=== PATIENT | female | born 1975 | race Caucasian/White ===

== ENCOUNTER → 2019-10-30 08:14 | Outpatient (BNVA) | payer BC, SELFPAY | PROVIDERS: Family Provider Family Medicine; PCP Family Medicine; Visit Provider Nurse Practitioner | DX: M54.41 Lumbago with sciatica, right side (principal); M54.2 Cervicalgia; G43.819 Other migraine, intractable, without status migrainosus; M25.511 Pain in right shoulder; M25.512 Pain in left shoulder; G62.9 Polyneuropathy, unspecified; Z98.1 Arthrodesis status; Z79.891 Long term (current) use of opiate analgesic | CPT/HCPCS: 99214 ==

== ENCOUNTER → 2019-12-28 15:02 | Outpatient (BNVA) | payer BC, SELFPAY | PROVIDERS: Family Provider Family Medicine; PCP Family Medicine; Visit Provider Anesthesiology | DX: M54.41 Lumbago with sciatica, right side (principal); G62.9 Polyneuropathy, unspecified; G43.819 Other migraine, intractable, without status migrainosus; Z98.1 Arthrodesis status; Z79.891 Long term (current) use of opiate analgesic | CPT/HCPCS: 99214 ==

== ENCOUNTER → 2020-05-07 11:34 | Outpatient (BNVA) | payer BC, SELFPAY | PROVIDERS: Family Provider Family Medicine; PCP Family Medicine; Visit Provider Anesthesiology | DX: M54.6 Pain in thoracic spine (principal); M54.41 Lumbago with sciatica, right side; M25.511 Pain in right shoulder; M25.512 Pain in left shoulder; R51 Headache; Z98.1 Arthrodesis status; Z79.891 Long term (current) use of opiate analgesic | CPT/HCPCS: 99214 ==

== ENCOUNTER → 2020-07-04 13:36 | Outpatient (BNVA) | payer BC, SELFPAY | PROVIDERS: Family Provider Family Medicine; PCP Family Medicine; Visit Provider Nurse Practitioner | DX: M54.41 Lumbago with sciatica, right side (principal); M54.6 Pain in thoracic spine; M54.2 Cervicalgia; R51 Headache; M25.511 Pain in right shoulder; M25.512 Pain in left shoulder; G62.9 Polyneuropathy, unspecified; Z98.1 Arthrodesis status; Z79.891 Long term (current) use of opiate analgesic | CPT/HCPCS: 99214 ==

== ENCOUNTER → 2020-09-05 13:38 | Outpatient (BNVA) | payer BC, SELFPAY | PROVIDERS: Family Provider Family Medicine; PCP Family Medicine; Visit Provider Anesthesiology | DX: M54.41 Lumbago with sciatica, right side (principal); G43.819 Other migraine, intractable, without status migrainosus; M54.6 Pain in thoracic spine; Z79.891 Long term (current) use of opiate analgesic; Z98.1 Arthrodesis status | CPT/HCPCS: 99214 ==

== ENCOUNTER → 2020-10-31 13:41 | Outpatient (BNVA) | payer BC, SELFPAY | PROVIDERS: Family Provider Family Medicine; PCP Family Medicine; Visit Provider Nurse Practitioner | DX: M54.41 Lumbago with sciatica, right side (principal); M25.521 Pain in right elbow; M25.522 Pain in left elbow; M25.511 Pain in right shoulder; M25.512 Pain in left shoulder; G43.819 Other migraine, intractable, without status migrainosus; M54.6 Pain in thoracic spine; G62.9 Polyneuropathy, unspecified; Z79.891 Long term (current) use of opiate analgesic | CPT/HCPCS: 99214 ==

== ENCOUNTER → 2020-12-26 13:41 | Outpatient (BNVA) | payer BC, SELFPAY | PROVIDERS: Family Provider Family Medicine; PCP Family Medicine; Visit Provider Nurse Practitioner | DX: G89.29 Other chronic pain (principal); M54.2 Cervicalgia; M54.41 Lumbago with sciatica, right side; M54.6 Pain in thoracic spine; M25.511 Pain in right shoulder; M25.512 Pain in left shoulder; Z98.1 Arthrodesis status; Z79.891 Long term (current) use of opiate analgesic | CPT/HCPCS: 99214 ==

== ENCOUNTER → 2021-02-20 13:25 | Outpatient (BNVA) | payer BC, SELFPAY | PROVIDERS: Family Provider Family Medicine; PCP Family Medicine; Visit Provider Anesthesiology | DX: G89.29 Other chronic pain (principal); M54.2 Cervicalgia; M25.511 Pain in right shoulder; M25.512 Pain in left shoulder; M54.6 Pain in thoracic spine; Z98.1 Arthrodesis status; Z79.891 Long term (current) use of opiate analgesic | CPT/HCPCS: 99214 ==

== ENCOUNTER → 2021-06-05 14:17 | Outpatient (BNVA) | payer BC, SELFPAY | PROVIDERS: Family Provider Family Medicine; Visit Provider Anesthesiology | DX: G89.29 Other chronic pain (principal); M54.2 Cervicalgia; M54.5 Low back pain; M54.6 Pain in thoracic spine; M25.551 Pain in right hip; M25.552 Pain in left hip; R51.9 Headache, unspecified; F17.210 Nicotine dependence, cigarettes, uncomplicated; Z98.1 Arthrodesis status; Z79.891 Long term (current) use of opiate analgesic | CPT/HCPCS: 99214 ==

== ENCOUNTER → 2021-08-07 13:34 | Outpatient (BNVA) | payer OTHER, SELFPAY | PROVIDERS: Family Provider Family Medicine; PCP Family Medicine; Visit Provider Anesthesiology | DX: G89.29 Other chronic pain (principal); M25.551 Pain in right hip; M25.552 Pain in left hip; M54.2 Cervicalgia; M54.50 Low back pain, unspecified; G43.819 Other migraine, intractable, without status migrainosus; M79.644 Pain in right finger(s); Z98.1 Arthrodesis status; Z79.891 Long term (current) use of opiate analgesic; F17.210 Nicotine dependence, cigarettes, uncomplicated | CPT/HCPCS: 99214 ==

== ENCOUNTER 2021-11-29 10:32 | Emergency (ER) | payer OTHER, SELFPAY ==
[2021-11-29] VITALS (7 sets, daily range): BP systolic 119–150; BP diastolic 75–94; PULSE 67–77; RESP 14–18; TEMP 36.5; O2SAT 96–98; BMI 31.8
--- NOTE | 2021-11-29 10:49 | PC.NURSE ---
CONFIRMED POSITIVE ON TUESDAY BY A HOME TEST, PATIENT COMPLETED ON THAT DAY AND IT WAS NEGATIVE- TUESDAY NIGHT PATIENT STARTED RUNNING A FEVER- 102, NOW HAVING SOB AND DIZZINESS
--- NOTE | 2021-11-29 11:08 | ECG_ITS ---
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 Measurements Intervals [place] Rate: 69 P: 60 [place]: 186 QRS: 43 QRSD: 86 T: 46 QT: 400 QTc: 431 Interpretive Statements SINUS RHYTHM No previous ECG available for comparison Electronically Signed On 11-29-2021 16:58:08 TILE SETTER SUPERVISOR by Jihan De La Paz M.D. [id number]
--- NOTE | 2021-11-29 11:08 | XRR_ITS ---
PROCEDURE INFORMATION: Exam: XR Chest Exam date and time: 11/29/2021 11:08 AM Age: 46 years old Clinical indication: Shortness of breath; Additional info: SOB TECHNIQUE: Imaging protocol: XR of the chest. Views: 1 view. COMPARISON: CT Cervical Spine wo* [id number] 12/03/2017 5:03 PM FINDINGS: Lungs: Unremarkable. No consolidation. Pleural spaces: Unremarkable. No pleural effusion. No pneumothorax. Heart/Mediastinum: Unremarkable. No cardiomegaly. Bones/joints: Unremarkable. XR/XR chest 1V portable [id number] IMPRESSION: No acute findings.
--- NOTE | 2021-11-29 11:09 | W.ED.SOB ---
HPI - SOB/Dyspnea General: Chief Complaint: Shortness of Breath/Dyspnea Stated Complaint: sob, covid positive exposure Time Seen by Provider: 11/29/21 10:46 History of Present Illness: HPI Narrative: 46-year-old with history of anxiety presents with shortness of breath. This started yesterday. Denies any cough chest pain lower extremity pain or swelling. She is PERC negative. Review of Systems Narrative: - CONSTITUTIONAL: Denies weight loss, fever and chills. - HEENT: Denies changes in vision and hearing. - RESPIRATORY: As above - CV: Denies palpitations and CP. - GI: Denies abdominal pain, nausea, vomiting and diarrhea. - : Denies dysuria and urinary frequency. - MSK: Denies myalgia and joint pain. - SKIN: Denies rash and pruritus. - NEUROLOGICAL: Denies headache, weakness, numbness and syncope. - PSYCHIATRIC: Denies suicidal ideation [facility] ED PFSH: Medical History Cervicogenic headache Chronic neck and back pain Hyperlipidemia joint terminal attack controller current use of opiate analgesic Neuropathy Pain in finger of right hand Shingles Shoulder pain, bilateral Thoracic spine pain Surgical History History of lumbar fusion 11/29/11 at [facility] S/P appendectomy 1989 S/P hysterectomy 2009-partial, 2009-full Status post tonsillectomy 1984 Family History Father Cancer Daughter Diabetes Social History (Updated 10/13/21 @ 14:23 by Alesia Sandhu LPN) Smoking and tobacco status: current some day smoker cigarettes Packs smoked per day: 0.5 Alcohol intake: never History of recent travel: No Physical Exam Narrative: EXAM NARRATIVE: - GENERAL: Alert and oriented x 3. No acute distress. Well-nourished. - EYES: EOMI. Anicteric. - HENT: Atraumatic, no C-spine tenderness. Moist mucous membranes. No scleral icterus. No cervical lymphadenopathy. - LUNGS: Clear to auscultation bilaterally. No accessory muscle use. Equal lung sounds bilaterally. No respiratory distress. - CARDIOVASCULAR: Regular rate and rhythm. No murmur. No JVD. - ABDOMEN: Soft, non-tender and non-distended. Negative CVA tenderness bilaterally, no rebound or guarding, negative Ye sign. No palpable masses. - EXTREMITIES: No edema. Non-tender. - SKIN: No rashes or lesions. Warm. - NEUROLOGIC: No meningismus or focal neurological deficits. CN II-XII grossly intact. - PSYCHIATRIC: Cooperative. Appropriate mood and affect. Course Vital Signs: Vital signs: Vital Signs Temperature 97.7 F 11/29/21 10:39 Pulse Rate 74 11/29/21 12:44 Respiratory Rate 17 11/29/21 12:44 Blood Pressure 150/94 11/29/21 12:44 Pulse Oximetry 97 11/29/21 13:36 MDM - SOB/Dyspnea Medical Decision Making 46-year-old presents with shortness of breath. Physical exam unremarkable. EKG and troponin do not reveal any sign of acute ischemia or acute abnormality. Patient is PERC negative. X-ray does not reveal pneumothorax or consolidation. She is however Covid positive. She is medically stable afebrile and nontoxic-appearing. Ambulated without desaturation. At this time I believe patient would be safe for discharge and outpatient follow-up. Return precautions provided. Plan was reviewed with the patient who expressed understanding. Questions answered. Patient will follow up with PCP. Patient discharged in stable condition. Lab Data : 11/29/21 11:40 11/29/21 11:40 Labs/Radiology: Radiology Impressions Chest X-Ray 11/29/21 11:08 IMPRESSION: No acute findings. Laboratory Results WBC 4.1 10^3/uL (4.0-10.0) 11/29/21 11:40 RBC 4.66 10^6/uL (4.1-5.3) 11/29/21 11:40 Hgb 14.9 g/dL (11.5-15.3) 11/29/21 11:40 Hct 45.3 % (37.0-47.0) 11/29/21 11:40 MCV 97.2 fl (81-99) 11/29/21 11:40 MCH 32.0 pg (28.0-34.0) 11/29/21 11:40 MCHC 32.9 g/dL (30.0-36.0) 11/29/21 11:40 RDW 13.5 % (12.1-15.1) 11/29/21 11:40 Plt Count 174 10^3/cmm (130-400) 11/29/21 11:40 MPV 10.7 fL (7.4-10.4) H 11/29/21 11:40 Neut % (Auto) 66.5 % 11/29/21 11:40 Lymph % (Auto) 24.3 % 11/29/21 11:40 [place] % (Auto) 4.6 % 11/29/21 11:40 Eos % (Auto) 3.4 % 11/29/21 11:40 Baso % (Auto) 0.2 % 11/29/21 11:40 Neut # (Auto) 2.73 10^3/uL (1.8-7.7) 11/29/21 11:40 Lymph # (Auto) 1.0 10^3/uL (0.8-4.8) 11/29/21 11:40 [place] # (Auto) 0.2 10^3/uL (0.2-0.9) 11/29/21 11:40 Eos # (Auto) 0.1 10^3/uL (0.0-0.8) 11/29/21 11:40 Baso # (Auto) 0.0 10^3/uL (0.0-0.1) 11/29/21 11:40 Nucleated RBC % (auto) 0 % 11/29/21 11:40 Nucleated RBCs # 0.0 /100WBC 11/29/21 11:40 Sodium 142 mmol/L (136-145) 11/29/21 11:40 Potassium 4.3 mmol/L (3.5-5.1) 11/29/21 11:40 Chloride 108 mmol/L (98-107) H 11/29/21 11:40 Carbon Dioxide 21 mmol/L (22-29) L 11/29/21 11:40 Anion Gap 17.3 (5-19) 11/29/21 11:40 BUN 7 mg/dL (6-20) 11/29/21 11:40 Creatinine 0.8 mg/dL (0.5-0.9) 11/29/21 11:40 GFR Calculation 76.6 mL/min (90-130) L 11/29/21 11:40 Glucose 85 mg/dL (65-115) 11/29/21 11:40 Calculated Osmolality 291 mOsm/kg (285-295) 11/29/21 11:40 Calcium 9.2 mg/dL (8.5-10.5) 11/29/21 11:40 Total Bilirubin 0.4 mg/dL (0.15-1.2) 11/29/21 11:40 AST 50 U/L (0-32) H 11/29/21 11:40 ALT 69 U/L (0-33) H 11/29/21 11:40 Alkaline Phosphatase 100 IU/L (35-105) 11/29/21 11:40 Troponin T Baseline 7 ng/L (0-10) 11/29/21 11:40 NT-Pro-B Natriuret Pep 216 pg/mL (0-125) H 11/29/21 11:40 Total Protein 6.0 g/dL (6.6-8.7) L 11/29/21 11:40 Albumin 4.2 g/dL (3.5-5.2) 11/29/21 11:40 Globulin 1.8 g/dL (1.3-4.6) 11/29/21 11:40 SARS-CoV-2 Ag (Rapid) Positive (Negative) H 11/29/21 11:52 Critical Care Time Critical Care Time: Attestation: Normal sinus rhythm, rate of 69, no sign of acute ischemia or other acute abnormality. Discharge Plan Discharge Patient Disposition: Home Clinical Impression: COVID-19 Condition: Stable Prescriptions: No Action ibuprofen 200 mg tablet 200 mg PO Q6H PRN0RF topiramate [Topamax] 200 mg tablet 200 mg PO BID 30 Days Qty: 60 1RF oxycodone-acetaminophen [Percocet] 10-325 mg tablet 1 tab PO .five times daily MDD 5 PRN (Reason: pain) 30 Days Qty: 150 0RF Rx Instructions: fill on or after 10/21/21 Pt on benzo meds oxycodone-acetaminophen [Percocet] 10-325 mg tablet 1 tab PO .five times daily MDD 5 PRN (Reason: pain) 30 Days Qty: 150 0RF Rx Instructions: fill on or after 11/20/21 Pt on benzo meds alprazolam [Xanax] 1 mg tablet 1 mg PO ONCE PRN0RF escitalopram oxalate 20 mg tablet 20 mg PO DAILY 0RF Centrum Complete 18-400 mg-mcg tablet 1 tab PO DAILY 0RF Discharge Orders: Discharge ED (Routine); Ordered 11/29/21 Ordered By: Kirill Skaggs Referrals: Pham Smiht DO [Primary Care Provider] - 1-3 days Patient Instructions: COVID-19 (Coronavirus Disease 2019) (ED), Opioid Safety Coding Level of Care Code ED [place] for [facility]
[2021-11-29] MEDS: hyDROXYzine 25 mg Capsule PO (11:50)
[2021-11-29 11:52] LABS: Basophils % 0.2 %; Eosinophils # 0.1 10^3/uL (0.0-0.8); Eosinophils % 3.4 %; Hematocrit 45.3 % (37.0-47.0); Hemoglobin 14.9 g/dL (11.5-15.3); Lymphocytes % 24.3 %; Mean Corpuscular HGB Conc 32.9 g/dL (30.0-36.0); Mean Corpuscular Volume 97.2 fl (81-99); Mean Platelet Volume 10.7 fL (7.4-10.4); Monocytes # 0.2 10^3/uL (0.2-0.9); Monocytes % 4.6 %; Neutrophils # 2.73 10^3/uL (1.8-7.7); Neutrophils % 66.5 %; Nucleated Red Blood Cells % 0 %; Platelet Count 174 10^3/cmm (130-400); Red Blood Count 4.66 10^6/uL (4.1-5.3); Red Cell Distribution Width 13.5 % (12.1-15.1); White Blood Count 4.1 10^3/uL (4.0-10.0)
[2021-11-29 12:19] LABS: Troponin(5th) Baseline 7 ng/L (0-10)
[2021-11-29 12:26] LABS: Alanine Aminotransferase 69 U/L (0-33); Albumin Level 4.2 g/dL (3.5-5.2); Alkaline Phosphatase 100 IU/L (35-105); Aspartate Amino Transferase 50 U/L (0-32); Blood Urea Nitrogen 7 mg/dL (6-20); Calcium 9.2 mg/dL (8.5-10.5); Carbon Dioxide 21 mmol/L (22-29); Chloride 108 mmol/L (98-107); Globulin 1.8 g/dL (1.3-4.6); Glomerular Filtration Rate 76.6 mL/min (90-130); Glucose 85 mg/dL (65-115); NT Pro B Type Natriuretic Pept 216 pg/mL (0-125); Osmolality Calculated 291 mOsm/kg (285-295); Sodium 142 mmol/L (136-145); Total Bilirubin 0.4 mg/dL (0.15-1.2)
[2021-11-29 12:36] LABS: Anion Gap 17.3 (5-19); Potassium 4.3 mmol/L (3.5-5.1)
[2021-11-29 12:47] LABS: SARS Covid-2 Antigen Positive (Negative)
--- NOTE | 2021-11-29 13:08 | ECG_ITS ---
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 Measurements Intervals [place] Rate: 64 P: 73 [place]: 205 QRS: 59 QRSD: 85 T: 60 QT: 405 QTc: 419 Interpretive Statements SINUS RHYTHM Compared to ECG 11/29/2021 11:31:07 No significant changes Electronically Signed On 11-29-2021 17:02:56 FIELD SCOUT by Jihan De La Paz M.D. [id number]
--- NOTE | 2021-11-29 14:14 | PC.NURSE ---
PATIENT DISCHARGED TO HOME- PATIENT VERBALIZES UNDERSTANDING OF ALL INSTRUCTIONS, AND FOLLOWUP PATIENT AMBULATED FROM THE ED AFTER IV REMOVED
[2021-11-29 14:30] LABS: Troponin 5 2HR Delta -1 ABS# (0-10)
== END 2021-11-29 14:15 | disposition home or self-care (01) ==
PROVIDERS: Emergency Provider Emergency Medicine; PCP Family Medicine
DX: U07.1 COVID-19 (principal); E78.5 Hyperlipidemia, unspecified; F17.210 Nicotine dependence, cigarettes, uncomplicated
CPT/HCPCS: 36415; 71045; 80053; 83880; 84484; 85025; 87426; 93005; 99284

== ENCOUNTER 2022-03-15 12:55 | Outpatient (CLI) | payer OTHER, SELFPAY ==
--- NOTE | 2022-03-15 | MR_ITS ---
WS: [id number] MRI LUMBAR SPINE WITH CONTRAST TECHNIQUE: Sagittal T1, T2 and STIR imaging. Axial T1 and T2 imaging. Post gadolinium imaging was obt ained. CLINICAL INFORMATION: L/S SPONDYLOSIS W/RADICULOPATHY, DDD COMPARISON: None. FINDINGS: Mild lumbar curve. No acute compression. Anterior interbody bony fusion L4-L5 and L5-S1. No high-grad e central canal stenosis. Slight anterolisthesis L4 on L5 and L5 on S1. L1-L2: Normal. L2-L3: No significant disc bulging. Moderate facet arthropathy. Spinal canal and foramen are patent. L3-L4: Minimal annular bulging. Moderate facet arthropathy. Spinal canal and foramen are patent. L4-L5: Postoperative changes anterior interbody fusion. Mild facet arthropathy. Spinal canal and fora men are patent. L5-S1: Postoperative changes anterior interbody fusion. Mild facet arthropathy. Spinal canal and fora men are patent. Tiny bilateral renal cysts. Partially visualized RIGHT hepatic cysts. MR/MR lumbar spine wo/w con [id number] IMPRESSION: 1. Mild lumbar curve. No acute compression. Moderate central canal stenosis. 2. Prior postoperative changes anterior interbody fusion L4-L5 and L5-S1. Spin al canal and foramen are patent at the fusion levels. 3. Slight anterolisthesis L4 on L5 and L5 on S1. 4. Moderate facet arthropathy L3-L4.
[2022-03-15] MEDS: gadobenate dimeglumine 20 mL vial IV (14:11)
== END 2022-03-15 12:56 | disposition home or self-care (01) ==
PROVIDERS: PCP Family Medicine; Visit Provider General Practice
DX: M51.36 Other intervertebral disc degeneration, lumbar region (principal); M47.27 Other spondylosis with radiculopathy, lumbosacral region; M96.1 Postlaminectomy syndrome, not elsewhere classified
CPT/HCPCS: 72158

== ENCOUNTER → 2023-10-03 09:26 | Outpatient (BNVA) | payer OTHER, SELFPAY | PROVIDERS: PCP Family Medicine; Visit Provider Family Medicine | DX: Z01.419 Encounter for gynecological examination (general) (routine) without abnormal findings (principal); Z13.6 Encounter for screening for cardiovascular disorders | CPT/HCPCS: 80053; 80061; 83036; 84443; 85025; 87624 ==

== ENCOUNTER 2023-10-11 08:36 | Outpatient (CLI) | payer OTHER, SELFPAY ==
--- NOTE | 2023-10-11 09:14 | MM_ITS ---
WS: [id number] Bilateral screening 3D tomosynthesis digital mammogram, 10/11/2023 Clinical Data: screening Comparison: 06/19/2015 Findings: The breast parenchymal pattern shows fibroglandular tissue. No spiculated masses or clustered calcifi cations are seen. There are no secondary signs of carcinoma. Impression: 1. Negative bilateral mammogram unchanged. 2. Recommend annual screening mammograms. MM/[place] [id number] BIRADS: 1-Negative FOLLOW UP: 1 Year Follow-up The CAD blast furnace checker was used.
== END 2023-10-11 08:37 | disposition home or self-care (01) ==
LOC: RAD 08:36
PROVIDERS: PCP Family Medicine; Visit Provider Family Medicine
DX: Z12.31 Encounter for screening mammogram for malignant neoplasm of breast (principal)
CPT/HCPCS: 77063; 77067

== ENCOUNTER → 2024-07-04 14:47 | Outpatient (BNVA) | payer BC, SELFPAY | PROVIDERS: PCP Family Medicine; Visit Provider Family Medicine | DX: E66.9 Obesity, unspecified (principal) | CPT/HCPCS: 80053; 80061; 84439; 84443; 85025 ==

== ENCOUNTER 2024-07-16 17:55 | Emergency (ER) | payer BC, SELFPAY ==
[2024-07-16 18:11] VITALS: BP 114/77; PULSE 83; RESP 15; TEMP 36.4; O2SAT 97; BMI 34.0
[2024-07-16 19:39] LABS: Basophils % 0.5 %; Eosinophils # 0.2 10^3/uL (0.0-0.8); Eosinophils % 2.5 %; Hematocrit 48.2 % (36-47); Lymphocytes # 2.3 10^3/uL (0.8-4.8); Lymphocytes % 26.4 %; Mean Corpuscular HGB Conc 32.6 g/dL (30-55); Mean Corpuscular Hemoglobin 31.5 pg (27-33); Mean Corpuscular Volume 96.8 fl (85-98); Monocytes # 0.4 10^3/uL (0.2-0.9); Monocytes % 4.8 %; Neutrophils # 5.58 10^3/uL (1.8-7.7); Neutrophils % 65.3 %; Nucleated Red Blood Cells % 0 %; Platelet Count 235 10^3/cmm (157-399); Red Blood Count 4.98 10^6/uL (3.85-5.65); Red Cell Distribution Width 13.6 % (12.1-15.1); White Blood Count 8.53 10^3/uL (3.29-11.43)
[2024-07-16 20:01] LABS: Alanine Aminotransferase 15 U/L (0-33); Albumin Level 4.2 g/dL (3.5-5.2); Alkaline Phosphatase 106 U/L (35-105); Anion Gap 13.3 (5-19); Aspartate Amino Transferase 14 U/L (0-32); Blood Urea Nitrogen 12 mg/dL (6-20); Calcium 9.2 mg/dL (8.5-10.5); Carbon Dioxide 26 mmol/L (22-29); Chloride 105 mmol/L (98-107); Creatinine Clr Calc Pharmacy 69.6358; Globulin 2.3 g/dL (1.3-4.6); Glomerular Filtration Rate 58.5 mL/min (90-130); Glucose 87 mg/dL (65-115); Lipase 46 U/L (13-60); Osmolality Calculated 289 mOsm/kg (285-295); Potassium 4.3 mmol/L (3.5-5.1); Sodium 140 mmol/L (136-145); Total Bilirubin 0.3 mg/dL (0.15-1.2); Total Protein 6.5 g/dL (6.6-8.7)
== END 2024-07-16 20:48 | disposition left against medical advice (07) ==
LOC: ER 18:00
PROVIDERS: Emergency Medicine; Emergency Provider Family Medicine; PCP Family Medicine
DX: Z53.21 Procedure and treatment not carried out due to patient leaving prior to being seen by health care provider (principal)
CPT/HCPCS: 80053; 83690; 85025